=== PATIENT | female | born 2000 | race Caucasian/White ===

== ENCOUNTER 2023-09-21 00:46 | Observation (INO) ==
[2023-09-21] MEDS ORDERED: Charcoal ACTIVATED 25 GM/120 ML BTL ONE (01:55)
[2023-09-21] MEDS: Lactated Ringers 1000 ml BAG 1,000 ML IV ONE ×2 (02:00→02:20)
[2023-09-21] MEDS: Ondansetron 4 mg VIAL 2 MG/ML 2 ml VIAL IV ONE (02:47)
[2023-09-21] MEDS: Charcoal ACTIVATED 50 GM/240 ML BTL PO ONE (02:47)
[2023-09-21 03:13] LABS: ABS Eosinophils 0.1 10^3/uL (0.0-0.5); ABS Lymphocytes 2.6 10^3/uL (1.0-4.8); ABS Monocytes 0.3 10^3/uL (0.0-0.9); ABS Neutrophils 2.7 10^3/uL (1.5-7.6); ABS Nucleated RBC 0.01 10^3/ul; Hematocrit 31.6 % (35-45); Hemoglobin 10.4 g/dL (11.5-14.3); Lymphocyte % 45.1 %; Mean Corpuscular Hemoglobin 26.3 pg (27-33); Mean Corpuscular Hgb Conc 33.1 g/dL (31-36); Mean Corpuscular Volume 79.6 fL (80-97); Mean Platelet Volume 7.3 fL (7.5-11.2); Nucleated Red Blood Cells % 0.2 %/100WBC (0.0-0.8); Platelet Count 283 10^3/uL (150-450); Red Blood Count 3.96 10^6/uL (3.63-4.92); Red Cell Distribution Width 17.7 % (12-17); White Blood Count 5.7 10^3/uL (3.8-11.8)
[2023-09-21 03:47] LABS: ALT 25 U/L (7-52); AST 27 U/L (13-39); Acetaminophen < 15 mcg/mL; Albumin 4.3 g/dL (3.2-5.2); Alcohol, S 75 mg/dL (<13); Alkaline Phosphatase 54 U/L (35-149); Anion Gap 12 mmol/L (2-16); Blood Urea Nitrogen 15 mg/dL (6-24); CO2 Carbon Dioxide 24 mmol/L (22-32); Calcium 9.1 mg/dL (8.6-10.3); Chloride 102 mmol/L (101-111); Creatine Kinase 124 U/L (10-223); Creatinine, Serum 0.86 mg/dL (0.51-0.95); Globulin 2.1 g/dL (2-4); Glucose 106 mg/dL (70-100); Potassium 3.7 mmol/L (3.5-5.0); Salicylate < 2.50 mg/dL (<30); Sodium 138 mmol/L (135-145); Total Bilirubin 0.3 mg/dL (0.2-1.0); Total Protein 6.4 g/dL (6.4-8.9); eGFR CKD-EPI 98.5 (>60)
[2023-09-21 03:53] LABS: HCG Pregnancy < 0.60 mIU/mL
[2023-09-21 05:04] LABS: Urine Appearance Clear; Urine Bilirubin Negative (Negative); Urine Blood Negative (Negative); Urine Color Colorless; Urine Glucose Negative (Negative); Urine Ketones Negative (Negative); Urine Nitrite Negative (Negative); Urine Protein Negative (Negative); Urine Specific Gravity 1.011 (1.002-1.030); Urine Urobilinogen Negative (Negative)
[2023-09-21 06:11] LABS: Urine Benzodiazepine Screen None Detected (None Detect); Urine Cannabinoids Screen None Detected (None Detect); Urine Opiates Screen None Detected (None Detect)
[2023-09-21 06:34] LABS: % Iron Saturation 5 % (15-55); .Transferrin 303 mg/dL (203-362); Iron 20 ug/dL (50-212); Total Iron Binding Capacity 424 mcg/dL (250-450); Unsaturated Iron Binding 404 ug/dL
[2023-09-21 07:00] LABS: Ferritin 3.7 ng/mL (11-307)
[2023-09-21] MEDS: Charcoal Activated/SORBITOL 50 GM/240 ML BTL PO ONE (07:46)
[2023-09-21] MEDS: NS 0.9% 1000 ml BAG 1,000 ML IV ONE ×2 (13:44→13:53)
[2023-09-21 14:22] LABS: T4, Total 5.97 mcg/dL (6.09-12.23)
[2023-09-21 14:26] LABS: TSH Ultra Thyroid Stim Horm 7.61 mcIU/mL (0.34-5.60)
[2023-09-21 14:35] LABS: Free T4 0.98 ng/dL (0.61-1.12)
[2023-09-21] MEDS: Iron Sucrose 200 MG in NS 0.9% 100 ml BAG 100 ML IVPB ONE (15:23)
[2023-09-22 06:29] LABS: ABS Eosinophils 0.1 10^3/uL (0.0-0.5); ABS Monocytes 0.5 10^3/uL (0.0-0.9); ABS Neutrophils 2.3 10^3/uL (1.5-7.6); Eosinophil % 1.4 %; Hematocrit 30.6 % (35-45); Lymphocyte % 41.6 %; Mean Corpuscular Hemoglobin 26.2 pg (27-33); Mean Corpuscular Hgb Conc 32.8 g/dL (31-36); Mean Platelet Volume 7.6 fL (7.5-11.2); Nucleated Red Blood Cells % 0.1 %/100WBC (0.0-0.8); Platelet Count 240 10^3/uL (150-450); Red Blood Count 3.83 10^6/uL (3.63-4.92); Red Cell Distribution Width 17.2 % (12-17); White Blood Count 4.8 10^3/uL (3.8-11.8)
[2023-09-22 06:46] LABS: Calcium 8.5 mg/dL (8.6-10.3); Creatinine, Serum 0.66 mg/dL (0.51-0.95); Potassium 4.3 mmol/L (3.5-5.0); eGFR CKD-EPI 127.9 (>60)
[2023-09-22] MEDS: Magnesium Sulfate 2 gm BAG 2 GM/50 ML BAG IVPB ONE (09:20)
[2023-09-22 13:56] VITALS: BP 121/67
[2023-09-23] MEDS ORDERED: Influenza vaccine *QUAD* *2023-24* 0.5 ML SYRINGE IM ONE (09:00)
[2023-09-23] MEDS ORDERED: COVID VAC 23-24(12+)(Moderna) SYR 0.5 ML IM ONE (09:00)
== END 2023-09-22 15:45 | disposition home or self-care (01) ==
LOC: ED 00:46 → EDHOLD 00:46 → SUATTDRO 05:19 → MEDTELE 11:38
PROVIDERS: ADMIT Hospitalist; ATTEND Hospitalist